=== PATIENT | female | born 1995 | race Caucasian/White ===

== ENCOUNTER 2016-11-02 15:00 | Emergency (ER) | payer BC ==
[~2016-11-02] VITALS: Ht 162.6 cm; Wt 83.4 kg
[2016-11-02 15:10] VITALS: TEMP 36.8; Ht 162.6 cm; Wt 83.4 kg
[2016-11-02] MEDS ORDERED: [UNRECOGNIZED DRUG - OTHER] TOP (15:29)
[2016-11-02] MEDS ORDERED: BCPILLS PO (15:29)
--- NOTE | 2016-11-02 15:43 | EMERGENCY ROOM VISIT NOTE ---
History Report prepared by Brandon: [place] Alexandra Under the Supervision of: Dr. Gautam Green M.D. First contact with patient: 15:25 Chief Complaint: HEADACHE Stated Complaint: GARNER, HIT HEAD ON WALL LAST NIGHT History of Present Illness The patient is a 20 year old female who presents to the Emergency Room with complaints of constant back of head soreness beginning one day prior to arrival. She currently rates her discomfort as a 1/10 in severity. The patient states she was heavily drinking alcohol last evening, when the event occurred. She was lifted up onto the bed and fell backwards, in which, she hit her head off of dry wall. The patient does not completely recall the event due to her alcohol intoxication. As per boyfriend, the patient did not lose consciousness. He notes he woke the patient up later in the night to check on her, and she was foggy about who her boyfriend was and where she was. The patient denies a headache, vomiting last night or this morning, difficulty walking, and being on a blood thinner. 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 A total of 10 systems reviewed and were otherwise negative. Past Medical & Surgical Surgical Problems: (1) S/P wisdom tooth extraction Family History Diabetes mellitus Hypertension Social History Smoking Status: Never Smoker Marital Status: single Occupation Status: [employer] student Current/Historical Medications Scheduled Control Pills ( Control Pills), 1 TAB PO DAILY [Adaferin], 1 APPLN TOP HS Allergies Coded Allergies: No Known Allergies (Unverified , 11/02/16) Physical Exam Vital Signs Date Time Temp Pulse Resp B/P Pulse Ox O2 Delivery O2 Flow Rate FiO2 11/02/16 15:10 36.8 107 17 146/85 99 Room Air Physical Exam GENERAL: Patient is in no acute distress. HEENT: No acute trauma, normocephalic atraumatic, mucous membranes moist, no nasal congestion, no scleral icterus. No scalp hematoma. TMs clear bilaterally. PERRL. NECK: No stridor, no adenopathy, no meningismus, trachea is midline. LUNGS: Clear to auscultation bilaterally, no wheeze, no rhonchi, breath sounds equal. HEART: Without murmurs gallops or rubs, regular rate and rhythm. ABDOMEN: Soft, nontender, bowel sounds positive, no hernias, no peritonitis. EXTREMITIES: No cyanosis or edema, full range of motion of all the joints without pain or difficulty, no signs for acute trauma. NEUROLOGIC: Oriented x 3, no acute motor or sensory deficits, no focal weakness. Normal tandem gait. Normal Romberg testing. No pronator drift. No cerebellar dysfunction. SKIN: No rash, no jaundice, no diaphoresis. Medical Decision & Procedures ED Course 1530: The patient was evaluated in room D1B. A complete history and physical exam was performed. 1545: Reevaluated the patient. Discussed results and discharge instructions: She verbalized understanding and agreement. The patient is ready for discharge. Medical Decision The differential diagnoses include but are not limited to: skull fracture, intracranial bleeding, concussion, generalized head trauma. The patient presents with an episode of head trauma last evening. She was intoxicated with alcohol when she struck her head. Today, she has a mild headache and she is here really to be sure she has not suffered a concussion or something more serious. She has not vomited, she has normal gait, he seems to be able to concentrate well and has not noticed any issues with her mentation. She admits that last night she felt somewhat foggy but cannot say if it was the alcohol or striking her head. On exam, there are no focal neurologic findings. The patient looks well, I do think she can be discharged. I highly doubt she has a concussion, more so I think this is just head trauma. The patient was encouraged to return for worsening symptoms. I did not feel a brain CT was necessary. Head injury precautions were given. Impression Primary Impression: Head trauma Scribe Attestation The scribe's documentation has been prepared under my direction and personally reviewed by me in its entirety. I confirm that the note above accurately reflects all work, treatment, procedures, and medical decision making performed by me. Departure Information Dispostion Home / Self-Care Forms HOME CARE DOCUMENTATION FORM, IMPORTANT VISIT INFORMATION Patient Instructions Concussion, My [facility] Additional Instructions rest no alcohol avoid sporting activity for 1 month to prevent repeat head injury motrin or tylenol for pain have someone wake you 1 time tonight to be sure you are ok return for worsening symptoms, vomiting or change in behavior
[2016-11-02 16:15] VITALS: BP 140/82; PULSE 80; O2SAT 98
== END 2016-11-02 16:16 | disposition home or self-care (01) ==
LOC: C.EDB 15:02 → C.EDD 16:16
DX: S09.90XA Unspecified injury of head, initial encounter (principal); W01.198A Fall on same level from slipping, tripping and stumbling with subsequent striking against other object, initial encounter; Z83.3 Family history of diabetes mellitus; Z82.49 Family history of ischemic heart disease and other diseases of the circulatory system; Z79.3 Long term (current) use of hormonal contraceptives